=== PATIENT | female | born 1990 | race Caucasian/White ===

== ENCOUNTER 2024-04-19 12:32 | Outpatient (AMB) | payer OTHER, SELFPAY ==
--- OUTSIDE RECORDS SUMMARY | 2024-04-19 12:35 | XMS_ITS | Continuity of Care Document ---
Author Organization [facility] Address [address] [place] [address]- Care Team Providers Care Oil Well Engineer Name Role Phone Saida Ruiz Primary Care Physician Encounter [place] Date(s): 02/27/24 - 03/28/24 [facility] [address] [place] [address] Encounter Type: Triage Allergies, Adverse Reactions, Alerts Substance Criticality Severity Reaction Reaction Severity Status bacitracin Active Neosporin Active Glutens Active Immunizations Given and Recorded Vaccine Date Status Refusal Reason RSV vaccine, preF A-preF B, recombinant 02/08/24 G iven SARS-CoV-2(COVID-19)mRNA-LNP vac([id number]) 01/06/24 Recorded SARS-CoV-2(COVID-19)mRNA-LNP vac([id number]) 02/18/23 Recorded tetanus/diphtheria/pertussis, acel(Tdap) 1 12/30/23 Given influenza virus vaccine, inactivated 02/18/23 Eduardo rded 1Result Comment: [facility]: [id number] Medications aspirin 81 mg oral capsule 1 capsule = 81 mg, By Mouth, 0 Refills, Maintenance, 01/03/24 10:13:00 AM EDT, Partial fill upon patient request if the prescription is for a schedule II opioid drug. Start Date: 01/03/24 Status: Ordered Repeat number: 1 famotidine 20 mg oral tablet 20 mg, 1, tablet, By Mouth, 2 times a day, # 60 tablet, Refills 1, Tot. Refills 1, Maintenance, 02/21/24 12:19:00 PM EDT, Route to Pharmacy Electronically, [facility]/pharmacy #[id number], Partial fill upon patient request if the prescription is for a schedule II opioid drug., 176, cm, 02/21/24 11:45:00 EDT, Height Start Date: 02/21/24 Stop Date: 04/21/24 Status: Ordered Quantity: 60.0 Unit: tablet Repeat number: 2 Humira Pen 40 mg/0.4 mL subcutaneous kit 0 Refills, Maintenance, 06/20/23 8:14:00 AM EST, Partial fill upon patient request if the prescription is for a schedule II opioid drug. Start Date: 06/20/23 Status: Ordered Repeat number: 1 ibuprofen 800 mg oral tablet 800 mg, 1, tablet, By Mouth, Every 8 hours, # 30 tablet, Refills 0, Tot. Refills 0, Maintenance, 03/14/24 6:43:00 AM EST, Route to Pharmacy Electronically, [facility]/pharmacy #[id number], Partial fill upon patient request if the prescription is for a schedule II opioid drug., 174, cm, 03/14/24 0:39:00 EST, Height, 99.72, kg, 03/12/24 8:28:00 EST, Dry Weight Start Date: 03/14/24 Status: Ordered Quantity: 30.0 Unit: tablet Repeat number: 1 Misc Rx Magnesium, Refills 0, Maintenance, 01/03/24 10:12:00 AM EDT, Supply Start Date: 01/03/24 Status: Ordered Repeat number: 1 NIFEdipine (Eqv-Adalat CC) 30 mg oral tablet, extended release 1 tablet = 30 mg, By Mouth, Daily, # 30 tablet, 0 Refills, Maintenance, 03/20/24 1:45:00 PM EST, ERTablet, [facility]/pharmacy #[id number], Partial fill upon patient request if the prescription is for a scheduleII opioid drug., 174, cm, 03/15/24 9:54:00 EST, Height, 99.72, kg, 03/12/24 8:28:00 EST, Dry Weight Start Date: 03/20/24 Status: Ordered Quantity: 30.0 Unit: tablet Repeat number: 1 oxyCODONE 5 mg oral capsule 1 capsule = 5 mg, By Mouth, Every 6 hours, PRN as needed for pain, # 10 capsule, 0 Refills, Maintenance, 03/14/24 6:43:00 AM EST, Capsule, [facility]/pharmacy [id number], Partial fill upon patient request if the prescription is for a schedule II opioid drug., 174, cm, 03/14/24 0:39:00 EST, Height, 99.72, kg, 03/12/24 8:28:00 EST, Dry Weight Start Date: 03/14/24 Status: Ordered Quantity: 10.0 Unit: capsule Repeat number: 1 Multivitamins with Folic Acid 1 mg oral tablet 1 tablet, By Mouth, Daily, # 30 tablet, 0 Refills, Maintenance, 08/01/23 2:26:00 PM EDT, Tablet, Partial fill upon patient request if the prescription is for a schedule II opioid drug. 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 Celiac disease Confirmed Active Endometriosis Confirmed Active Low-lying placenta Confirmed Active Rh negative, antepartum Confirmed Active Tachycardia Confirmed Active Ulcerative colitis Confirmed Active Varicose veins of legs Confirmed Active Social History Social History Type Response Smoking Status Never (less than 100 in lifetime) entered on: 08/01/23 Sex Sex Representation Female (finding) Patient Care team information Care Team Personnel Name: Saida Ruiz Position: [facility] PCO Associate Professional Member Role: PCP Address: [address] [place] [address] Telecom: Care Team Related Persons Name: ALLY RANGEL Name: MIRNA RANGEL Insurance Providers Guarantor name: STEFAN RANGEL Health Plan Information #: 1 Payer: [employer] [facility] PPO Member Number: NA Policy Number: NA Group Number: NA
--- OUTSIDE RECORDS SUMMARY | 2024-04-19 12:35 | XMS_ITS | Continuity of Care Document ---
Author Organization [facility] Address [address] [place] [address]- Care Team Providers Care Traffic Engineering Director Name Role Phone Saida Ruiz Primary Care Physician Encounter [facility] Date(s): 03/19/24 - 04/18/24 [facility] [address] [place] [address]- Encounter Type: Triage Allergies, Adverse Reactions, Alerts Substance Criticality Severity Reaction Reaction Severity Status bacitracin Active Neosporin Active Glutens Active Immunizations Given and Recorded Vaccine Date Status Refusal Reason RSV vaccine, preF A-preF B, recombinant 02/08/24 G iven SARS-CoV-2(COVID-19)mRNA-LNP vac([id number]) 01/06/24 Recorded SARS-CoV-2(COVID-19)mRNA-LNP vac([id number]) 02/18/23 Recorded tetanus/diphtheria/pertussis, acel(Tdap) 1 12/30/23 Given influenza virus vaccine, inactivated 02/18/23 Eduardo rded 1Result Comment: [facility]: [id number] Medications aspirin 81 mg oral capsule 1 [...] PM EDT, Route to Pharmacy Electronically, [facility]/pharmacy #[id number], Partial fill upon patient request if the [...] AM EST, Route to Pharmacy Electronically, [facility]/pharmacy #[id number], Partial fill upon patient request if [...] Maintenance, 03/20/24 1:45:00 PM EST, ERTablet, [facility]/pharmacy #[id number], Partial fill upon patient request if [...] Refills, Maintenance, 03/14/24 6:43:00 AM EST, Capsule, [facility]/pharmacy #[id number], Partial fill upon patient request if [...] Care Team Personnel Name: Saida Ruiz Position: [facility] PCO Associate Professional Member Role: PCP Address: [address] [place] [address] Telecom: Care Team Related Persons Name: ALLY RANGEL Name: MIRNA RANGEL Insurance Providers Guarantor name: STEFAN RANGEL Health Plan Information #: 1 Payer: [employer] [facility] PPO Member Number: NA Policy Number: NA Group Number: NA
--- OUTSIDE RECORDS SUMMARY | 2024-04-19 12:35 | XMS_ITS | Continuity of Care Document ---
Author Organization [facility] Address [address] [place] [address]- Care Team Providers Care Glove Operator Name Role Phone Saida Ruiz Primary Care Physician Encounter [facility] Date(s): 03/01/24 - 03/31/[address] [address] Attending Physician: AdmJaime jacob Admitting Physician: AdmtrJaime Referring Physician: Admtr, Ar8 Encounter Type: Triage Allergies, Adverse Reactions, Alerts Substance Criticality Severity Reaction Reaction Severity Status bacitracin Active Neosporin Active Glutens Active Immunizations Given and Recorded Vaccine Date Status Refusal Reason RSV vaccine, preF A-preF B, recombinant 02/08/24 G iven SARS-CoV-2(COVID-19)mRNA-LNP vac([id number]) 01/06/24 Recorded SARS-CoV-2(COVID-19)mRNA-LNP vac([id number]) 02/18/23 Recorded tetanus/diphtheria/pertussis, acel(Tdap) 1 12/30/23 Given influenza virus vaccine, inactivated 02/18/23 Eduardo rded 1Result Comment: [facility]: [id number] Medications aspirin 81 mg oral capsule 1 [...] 12:19:00 PM EDT, Route to Pharmacy Electronically, [facility]/pharmacy #[id number], Partial fill upon patient request if [...] 6:43:00 AM EST, Route to Pharmacy Electronically, [facility]/pharmacy #[id number], Partial fill upon patient request if [...] Refills, Maintenance, 03/20/24 1:45:00 PM EST, ERTablet, [facility]/pharmacy #[id number], Partial fill upon patient request if [...] Care Team Personnel Name: Saida Ruiz Position: [facility] PCO Associate Professional Member Role: PCP Address: [address] [place] [address] Telecom: Care Team Related Persons Name: ALLY RANGEL Name: MIRNA RANGEL Insurance Providers Guarantor name: STEFAN RANGEL Health Plan Information #: 1 Payer: [facility] PPO Member Number: NA Policy Number: NA Group Number: NA
--- OUTSIDE RECORDS SUMMARY | 2024-04-19 12:35 | XMS_ITS | Continuity of Care Document ---
Author Organization [facility] [employer] [facility] Address [address] [place] [address], [address] [place] [address]- Care Team Providers Care State Farm Agent Name Role Phone Shyam AZEVEDO, Saida Waters Primary Care Physician [phone] [id number] Date[facility] 04/09/[facility] - 04/16/[facility]ie [employer] [address], [address] [place], [place] [address] Attending Physician: Carisa Segura MD Referring Physician: Joseph GARCIA [OB], Leatha Cummings Encounter Type: Office Visit Allergies, Adverse Reactions, Alerts Substance Criticality Severity Reaction Reaction Severity Status bacitracin Active Neosporin Active Glutens Active Immunizations Given and Recorded Vaccine Date Status Refusal Reason RSV vaccine, preF A-preF B, recombinant 02/08/24 G iven SARS-CoV-2(COVID-19)mRNA-LNP vac([id number]) 01/06/24 Recorded SARS-CoV-2(COVID-19)mRNA-LNP vac([id number]) 02/18/23 Recorded tetanus/diphtheria/pertussis, acel(Tdap) 1 12/30/23 Given influenza virus vaccine, inactivated 02/18/23 Eduardo rded 1Result Comment: [facility]: [id number] Medications aspirin 81 mg oral capsule 1 [...] 12:19:00 PM EDT, Route to Pharmacy Electronically, [facility]/pharmacy #[id number], Partial fill upon patient request [...] 6:43:00 AM EST, Route to Pharmacy Electronically, [facility]/pharmacy #[id number], Partial fill upon patient request [...] Refills, Maintenance, 03/20/24 1:45:00 PM EST, ERTablet, [facility]/pharmacy #[id number], Partial fill upon patient request [...] Care Team Personnel Name: Saida Ruiz Position: [facility] PCO Associate Professional Member Role: PCP Address: [address] [place] [address] Telecom: Care Team Related Persons Name: ALLY RANGEL Name: MIRNA RANGEL Insurance Providers Guarantor name: STEFAN RANGEL Health Plan Information #: 1 Payer: [employer] [facility] PPO Member Number: [id number] Policy Number: NA Group Number: [id number] Health Plan Information #: 2 Payer: [facility] PPO Member Number: [id number] Policy Number: NA Group Number: NA
--- OUTSIDE RECORDS SUMMARY | 2024-04-19 12:35 | XMS_ITS | Continuity of Care Document ---
Author Organization [facility] [employer] Address [address] [place] [address], [address] [address]- Care Team Providers Care Director Video Name Role Phone Shyam AZEVEDO, Saida Waters Primary Care Physician [phone] [facility] Date(s): 02/22/24 - 03/23/24 [facility] Perez[facility] [employer]ologic[employer] [address], [address] [place], [place] [address] Encounter Type: Triage Allergies, Adverse Reactions, Alerts Substance Criticality Severity Reaction Reaction Severity Status bacitracin Active Neosporin Active Glutens Active Immunizations Given and Recorded Vaccine Date Status Refusal Reason RSV vaccine, preF A-preF B, recombinant 02/08/24 G iven SARS-CoV-2(COVID-19)mRNA-LNP vac([id number]) 01/06/24 Recorded SARS-CoV-2(COVID-19)mRNA-LNP vac([id number]) 02/18/23 Recorded tetanus/diphtheria/pertussis, acel(Tdap) 1 12/30/23 Given influenza virus vaccine, inactivated 02/18/23 Eduardo rded 1Result Comment: [facility]: [id number] Medications aspirin 81 mg oral capsule 1 [...] 12:19:00 PM EDT, Route to Pharmacy Electronically, [facility]/pharmacy #[id number], Partial fill upon patient request if [...] 6:43:00 AM EST, Route to Pharmacy Electronically, [facility]/pharmacy #[id number], Partial fill upon patient request if [...] Refills, Maintenance, 03/20/24 1:45:00 PM EST, ERTablet, [facility]/pharmacy #[id number], Partial fill upon patient request if [...] Care Team Personnel Name: Saida Ruiz Position: [facility] PCO Associate Professional Member Role: PCP Address: [address] [place] [address] Telecom: Care Team Related Persons Name: ALLY RANGEL Name: MIRNA RANGEL Insurance Providers Guarantor name: STEFAN RANGEL Health Plan Information #: 1 Payer: [employer] [facility] PPO Member Number: NA Policy Number: NA Group Number: NA
--- OUTSIDE RECORDS SUMMARY | 2024-04-19 12:35 | XMS_ITS | Continuity of Care Document ---
Author Organization [facility] [employer] [facility] Address [address] [place] [address], [address] [place] [address]- Care Team Providers Care Senior Clinical Consultant Name Role Phone Saida Ruiz Primary Care Physician [phone] [id number] Date(s): 03/26/24 - 04/02/24 [facility]natalie PerezJ[employer] [address], [address] [place], [place] [address] Attending Physician: Carisa Segura MD Referring Physician: Saida Ruiz Encounter Type: Office Visit Allergies, Adverse Reactions, Alerts Substance Criticality Severity Reaction Reaction Severity Status bacitracin Active Neosporin Active Glutens Active Immunizations Given and Recorded Vaccine Date Status Refusal Reason RSV vaccine, preF A-preF B, recombinant 02/08/24 G iven SARS-CoV-2(COVID-19)mRNA-LNP vac([id number]) 01/06/24 Recorded SARS-CoV-2(COVID-19)mRNA-LNP vac(bed572) 02/18/23 Recorded tetanus/diphtheria/pertussis, acel(Tdap) 1 12/30/23 Given influenza virus vaccine, inactivated 02/18/23 Eduardo rded 1Result Comment: [facility]: [id number] Medications aspirin 81 mg oral capsule 1 [...] 12:19:00 PM EDT, Route to Pharmacy Electronically, [facility]/pharmacy #[id number], Partial fill upon [...] 6:43:00 AM EST, Route to Pharmacy Electronically, [facility]/pharmacy #[id number], Partial fill upon [...] Refills, Maintenance, 03/20/24 1:45:00 PM EST, ERTablet, [facility]/pharmacy #[id number], Partial fill upon [...] Care Team Personnel Name: Saida Ruiz Position: [facility] PCO Associate Professional Member Role: PCP Address: [address] [place] [address] Telecom: Care Team Related Persons Name: ALLY RANGEL Name: MIRNA RANGEL Insurance Providers Guarantor name: STEFAN RANGEL Health Plan Information #: 1 Payer: [employer]EL[employer] [facility] PPO Member Number: [id number] Policy Number: NA Group Number: [id number] Health Plan Information #: 2 Payer: [facility] PPO Member Number: [id number] Policy Number: NA Group Number: NA
--- OUTSIDE RECORDS SUMMARY | 2024-04-19 12:35 | XMS_ITS | Continuity of Care Document ---
Author Organization [facility] Address [address] [place] [address]- Care Team Providers Care Tank Officer Name Role Phone Saida Ruiz Primary Care Physician Encounter [facility] [place] Date(s): 03/06/24 - 04/05/24 [facility] [address] [place] [address]- Encounter Type: Triage Allergies, Adverse Reactions, Alerts Substance Criticality Severity Reaction Reaction Severity Status bacitracin Active Neosporin Active Glutens Active Immunizations Given and Recorded Vaccine Date Status Refusal Reason RSV vaccine, preF A-preF B, recombinant 02/08/24 G iven SARS-CoV-2(COVID-19)mRNA-LNP vac([id number]) 01/06/24 Recorded SARS-CoV-2(COVID-19)mRNA-LNP vac([id number]) 02/18/23 Recorded tetanus/diphtheria/pertussis, acel(Tdap) 1 12/30/23 Given influenza virus vaccine, inactivated 02/18/23 Eduardo rded 1Result Comment: [facility]: [id number] Medications aspirin 81 mg oral capsule 1 [...] 12:19:00 PM EDT, Route to Pharmacy Electronically, [facility]/pharmacy #[id number], Partial fill upon patient request if the [...] 6:43:00 AM EST, Route to Pharmacy Electronically, [facility]/pharmacy #[id number], Partial fill upon patient request [...] Refills, Maintenance, 03/20/24 1:45:00 PM EST, ERTablet, [facility]/pharmacy #[id number], Partial fill upon patient request [...] Refills, Maintenance, 03/14/24 6:43:00 AM EST, Capsule, [facility]/pharmacy #[id number], Partial fill upon patient request [...] Care Team Personnel Name: Saida Ruiz Position: [facility] PCO Associate Professional Member Role: PCP Address: [address] [place] [address] Telecom: Care Team Related Persons Name: ALLY RANGEL Name: MIRNA RANGEL Insurance Providers Guarantor name: STEFAN RANGEL Health Plan Information #: 1 Payer: [employer] [facility] PPO Member Number: NA Policy Number: NA Group Number: NA
--- OUTSIDE RECORDS SUMMARY | 2024-04-19 12:35 | XMS_ITS | Continuity of Care Document ---
Author Organization [facility] [employer] [facility] Address [address] [place] [address], [address] [address]- Care Team Providers Care Inker And Opaquer Name Role Phone Shyam AZEVEDO, Saida Waters Primary Care Physician [facility] [facility] Date(s[place] 03/02/24 - 04/01/24 [facility] PerezSpaceLists [address], [address] [place], [place] [address] Encounter Type: Triage Allergies, Adverse Reactions, Alerts Substance Criticality Severity Reaction Reaction Severity Status bacitracin Active Neosporin Active Glutens Active Immunizations Given and Recorded Vaccine Date Status Refusal Reason RSV vaccine, preF A-preF B, recombinant 02/08/24 G iven SARS-CoV-2(COVID-19)mRNA-LNP vac([id number]) 01/06/24 Recorded SARS-CoV-2(COVID-19)mRNA-LNP vac([id number]) 02/18/23 Recorded tetanus/diphtheria/pertussis, acel(Tdap) 1 12/30/23 Given influenza virus vaccine, inactivated 02/18/23 Eduardo rded 1Result Comment: [facility]: [phone] Medications aspirin 81 mg oral capsule 1 [...] 12:19:00 PM EDT, Route to Pharmacy Electronically, [facility]/pharmacy #[id number], Partial fill upon patient request [...] 6:43:00 AM EST, Route to Pharmacy Electronically, [facility]/pharmacy #[id number], Partial fill upon patient request [...] Refills, Maintenance, 03/20/24 1:45:00 PM EST, ERTablet, [facility]/pharmacy #[id number], Partial fill upon patient request [...] Care Team Personnel Name: Saida Ruiz Position: [facility] PCO Associate Professional Member Role: PCP Address: [address] [place] [address] Telecom: Care Team Related Persons Name: ALLY RANGEL Name: MIRNA RANGEL Insurance Providers Guarantor name: STEFAN RANGEL Health Plan Information #: 1 Payer: [employer] [facility] PPO Member Number: NA Policy Number: NA Group Number: NA
--- OUTSIDE RECORDS SUMMARY | 2024-04-19 12:35 | XMS_ITS | Continuity of Care Document ---
Author Organization [facility] [employer] [employer] [facility] Address [address] [place] [address], [address] [address]- Care Team Providers Care Senior Piping Designer Name Role Phone Shyam AZEVEDO, Saida Waters Primary Care Physician [id number] Date[facility]s): 12/30/23 - 04/12/24 [facility] Navinnatalie Pereztok tok [employer] [address], [address] [place], [place] [address] Attending Physician: Marcel Kiser MD Referring Physician: Leana Neal MD Encounter Type: Pre Office Visit Allergies, Adverse Reactions, Alerts Substance Criticality Severity Reaction Reaction Severity Status bacitracin Active Neosporin Active Glutens Active Immunizations Given and Recorded Vaccine Date Status Refusal Reason RSV vaccine, preF A-preF B, recombinant 02/08/24 G iven SARS-CoV-2(COVID-19)mRNA-LNP vac([id number]) 01/06/24 Recorded SARS-CoV-2(COVID-19)mRNA-LNP vac([id number]) 02/18/23 Recorded tetanus/diphtheria/pertussis, acel(Tdap) 1 12/30/23 Given influenza virus vaccine, inactivated 02/18/23 Eduardo rded 1Result Comment: [facility]: [id number] Medications aspirin 81 mg oral capsule 1 [...] 12:19:00 PM EDT, Route to Pharmacy Electronically, [facility]/pharmacy #[id number], Partial fill upon patient request if [...] 6:43:00 AM EST, Route to Pharmacy Electronically, [facility]/pharmacy #[id number], Partial fill upon patient request if [...] Refills, Maintenance, 03/20/24 1:45:00 PM EST, ERTablet, [facility]/pharmacy #[id number], Partial fill upon patient request if [...] Care Team Personnel Name: Saida Ruiz Position: [facility] PCO Associate Professional Member Role: PCP Address: [address] [place] [address] Telecom: Care Team Related Persons Name: ALLY RANGEL Name: MIRNA RANGEL Insurance Providers Guarantor name: STEFAN RANGEL Health Plan Information #: 1 Payer: [employer] [facility] PPO Member Number: [id number] Policy Number: NA Group Number: [id number] Health Plan Information #: [address] [facility] PPO Member Number: [id number] Policy Number: NA Group Number: NA
--- OUTSIDE RECORDS SUMMARY | 2024-04-19 12:36 | XMS_ITS | Continuity of Care Document ---
Author Organization [facility] Valentin nFlyrs [facility] Address [address] [place] [address], [address] [place] [address]- Care Team Providers Care Watch Hairspring Assembler Name Role Phone Shyam AZEVEDO, Saida Waters Primary Care Physician [id number] Date[facility]s): [facility]/08[facility]24 - 04/15/24 [facility] Navinnatalie PerezFlyrs [address], [address] [place], [place] [address] Attending Physician: Joseph GARCIA [OB], Leatha Cummings Encounter Type: Pre Office Visit Allergies, Adverse Reactions, Alerts Substance Criticality Severity Reaction Reaction Severity Status bacitracin Active Neosporin Active Glutens Active Immunizations Given and Recorded Vaccine Date Status Refusal Reason RSV vaccine, preF A-preF B, recombinant 02/08/24 G iven SARS-CoV-2(COVID-19)mRNA-LNP vac([id number]) 01/06/24 Recorded SARS-CoV-2(COVID-19)mRNA-LNP vac([id number]) 02/18/23 Recorded tetanus/diphtheria/pertussis, acel(Tdap) 1 12/30/23 Given influenza virus vaccine, inactivated 02/18/23 Eduardo rded 1Result Comment: [facility]: [id number] Medications aspirin 81 mg oral capsule 1 [...] PM EDT, Route to Pharmacy Electronically, [facility]/pharmacy #[id number], Partial fill upon patient request [...] AM EST, Route to Pharmacy Electronically, [facility]/pharmacy #[id number], Partial fill upon patient request [...] Maintenance, 03/20/24 1:45:00 PM EST, ERTablet, [facility]/pharmacy #[id number], Partial fill upon patient request [...] Care Team Personnel Name: Saida Ruiz Position: [facility] PCO Associate Professional Member Role: PCP Address: [address] [place] [address] Telecom: Care Team Related Persons Name: ALLY RANGEL Name: MIRNA RANGEL Insurance Providers Guarantor name: STEFAN RANGEL Health Plan Information #: 1 Payer: [facility] PPO Member Number: [id number] Policy Number: NA Group Number: [id number] Health Plan Information #: 2 Payer: [facility] PPO Member Number: [id number] Policy Number: NA Group Number: [id number]
--- OUTSIDE RECORDS SUMMARY | 2024-04-19 12:36 | XMS_ITS | Continuity of Care Document ---
Author Organization [facility] Valentin n[employer] [facility] Address [address] [place] [address], [address] [address]- Care Team Providers Care Gas Torch Brazier Name Role Phone Shyam AZEVEDO, Saida Waters Primary Care Physician [phone] [id number]/19[facility] - 03/26/24 [facility] Pittstonnatalie PerezRadio Revolution Network, LL[employer] [facility] [address] [place] [address], [address] [place], [place] [address] Attending Physician: Carisa Segura MD Referring Physician: Celia Apple MD Encounter Type: Office Visit Allergies, Adverse Reactions, Alerts Substance Criticality Severity Reaction Reaction Severity Status bacitracin Active Neosporin Active Glutens Active Immunizations Given and Recorded Vaccine Date Status Refusal Reason RSV vaccine, preF A-preF B, recombinant 02/08/24 G iven SARS-CoV-2(COVID-19)mRNA-LNP vac([id number]) 01/06/24 Recorded SARS-CoV-2(COVID-19)mRNA-LNP vac([id number]) 02/18/23 Recorded tetanus/diphtheria/pertussis, acel(Tdap) 1 12/30/23 Given influenza virus vaccine, inactivated 02/18/23 Eduardo rded 1Result Comment: [facility]: [id number] Medications aspirin 81 mg oral capsule 1 [...] 12:19:00 PM EDT, Route to Pharmacy Electronically, [facility]/pharmacy #[id number], Partial fill upon patient request [...] 6:43:00 AM EST, Route to Pharmacy Electronically, [facility]/pharmacy #[id number], Partial fill upon patient request [...] Refills, Maintenance, 03/20/24 1:45:00 PM EST, ERTablet, [facility]/pharmacy #[id number], Partial fill upon patient request [...] Care Team Personnel Name: Saida Ruiz Position: [facility] PCO Associate Professional Member Role: PCP Address: [address] [place] [address] Telecom: Care Team Related Persons Name: ALLY RANGEL Name: MIRNA RANGEL Insurance Providers Guarantor name: STEFAN RANGEL Health Plan Information #: 1 Payer: [facility] PPO Member Number: [id number] Policy Number: NA Group Number: [id number] Health Plan Information #: 2 Payer: [facility] PPO Member Number: [id number] Policy Number: NA Group Number: NA
--- OUTSIDE RECORDS SUMMARY | 2024-04-19 12:36 | XMS_ITS | Continuity of Care Document ---
Author Organization [facility] Address [address] [place] [address]- Care Team Providers Care Resident Buyer Name Role Phone Saida Ruiz Primary Care Physician En[facility] Date(s): 03/02/24 - 04/01/24 [facility] [address] [place] [id number] Encounter Type: Triage Allergies, Adverse Reactions, Alerts Substance Criticality Severity Reaction Reaction Severity Status bacitracin Active Neosporin Active Glutens Active Immunizations Given and Recorded Vaccine Date Status Refusal Reason RSV vaccine, preF A-preF B, recombinant 02/08/24 G iven SARS-CoV-2(COVID-19)mRNA-LNP vac([id number]) 01/06/24 Recorded SARS-CoV-2(COVID-19)mRNA-LNP vac([id number]) 02/18/23 Recorded tetanus/diphtheria/pertussis, acel(Tdap) 1 12/30/23 Given influenza virus vaccine, inactivated 02/18/23 Eduardo rded 1Result Comment: [facility]: [id number] Medications aspirin 81 mg oral capsule 1 [...] 12:19:00 PM EDT, Route to Pharmacy Electronically, [facility]/pharmacy #[id number], Partial fill upon patient [...] 6:43:00 AM EST, Route to Pharmacy Electronically, [facility]/pharmacy #[id number], Partial fill upon patient [...] Refills, Maintenance, 03/20/24 1:45:00 PM EST, ERTablet, [facility]/pharmacy #[id number], Partial fill upon patient [...] Care Team Personnel Name: Saida Ruiz Position: [facility] PCO Associate Professional Member Role: PCP Address: [address] [place] [address] Telecom: Care Team Related Persons Name: ALLY RANGEL Name: MIRNA RANGEL Insurance Providers Guarantor name: STEFAN RANGEL Health Plan Information #: 1 Payer: [employer] PPO Member Number: NA Policy Number: NA Group Number: NA
--- OUTSIDE RECORDS SUMMARY | 2024-04-19 12:36 | XMS_ITS | Continuity of Care Document ---
Author Organization [facility] Address [address] [place] [address]- Care Team Providers Care Twisting Operator Name Role Phone Saida Ruiz Primary Care Physician Encounter [facility] [id number] Date(s): 02/28/24 - 03/29/24 [facility] [address] [place] [address]- Attending Physician: Jaime Lyon Admitting Physician: AdmtrJaime Referring Physician: Admtr Ar8 Encounter Type: Triage Allergies, Adverse Reactions, Alerts Substance Criticality Severity Reaction Reaction Severity Status bacitracin Active Neosporin Active Glutens Active Immunizations Given and Recorded Vaccine Date Status Refusal Reason RSV vaccine, preF A-preF B, recombinant 02/08/24 G iven SARS-CoV-2(COVID-19)mRNA-LNP vac([id number]) 01/06/24 Recorded SARS-CoV-2(COVID-19)mRNA-LNP vac([id number]) 02/18/23 Recorded tetanus/diphtheria/pertussis, acel(Tdap) 1 12/30/23 Given influenza virus vaccine, inactivated 02/18/23 Eduardo rded 1Result Comment: [facility]: [id number] Medications aspirin 81 mg oral capsule 1 [...] 12:19:00 PM EDT, Route to Pharmacy Electronically, [facility]/pharmacy #[id number], Partial fill upon patient request if [...] 6:43:00 AM EST, Route to Pharmacy Electronically, [facility]/pharmacy #[id number], Partial fill upon patient request if [...] Refills, Maintenance, 03/20/24 1:45:00 PM EST, ERTablet, [facility]/pharmacy #[id number], Partial fill upon patient request if [...] Care Team Personnel Name: Saida Ruiz Position: [facility] PCO Associate Professional Member Role: PCP Address: [address] [place] [address] Telecom: Care Team Related Persons Name: ALLY RANGEL Name: MIRNA RANGEL Insurance Providers Guarantor name: STEFAN RANGEL Health Plan Information #: 1 Payer: [facility] PPO Member Number: NA Policy Number: NA Group Number: NA
--- OUTSIDE RECORDS SUMMARY | 2024-04-19 12:36 | XMS_ITS | Continuity of Care Document ---
Author Organization [facility] Address [address] [place] [address]- Care Team Providers Care Assembly And Packing Supervisor Name Role Phone Saida Ruiz Primary Care Physician [phone] [place] [facility] Date(s): 02/22/24 - 03/23/24 [facility] [address] [place] [address] Encounter Type: Triage Allergies, Adverse Reactions, Alerts Substance Criticality Severity Reaction Reaction Severity Status bacitracin Active Neosporin Active Glutens Active Immunizations Given and Recorded Vaccine Date Status Refusal Reason RSV vaccine, preF A-preF B, recombinant 02/08/24 G iven SARS-CoV-2(COVID-19)mRNA-LNP vac([id number]) 01/06/24 Recorded SARS-CoV-2(COVID-19)mRNA-LNP vac([id number]) 02/18/23 Recorded tetanus/diphtheria/pertussis, acel(Tdap) 1 12/30/23 Given influenza virus vaccine, inactivated 02/18/23 Eduardo rded 1Result Comment: [facility]: [id number] Medications acetaminophen 650 mg oral tablet, extended release 1 tablet = 650 mg, By Mouth, Every 8 hours, for 10 days, # 30 tablet, 0 Refills, Acute 03/24/24 6:43:00 AM EST, 03/14/24 6:43:00 AM EST, ER Tablet, [id number], Partial fill upon patient request if the prescription is for a schedule II opioid drug., 174, cm, 03/14/24 0:39:00 EST, Height, 99.72, kg, 03/12/24 8:28:00 EST, Dry Weight Start Date: 03/14/24 Stop Date: 03/24/24 Status: Ordered Quantity: 30.0 Unit: tablet Repeat number: 1 aspirin 81 mg oral capsule 1 capsule [...] 12:19:00 PM EDT, Route to Pharmacy Electronically, [facility]/pharmacy #[id number], Partial fill upon patient request [...] 6:43:00 AM EST, Route to Pharmacy Electronically, [facility]/pharmacy #[id number], Partial fill upon patient request [...] Refills, Maintenance, 03/20/24 1:45:00 PM EST, ERTablet, [id number], Partial fill upon patient request [...] Care Team Personnel Name: Saida Ruiz Position: [facility] PCO Associate Professional Member Role: PCP Address: [address] [place] [address] Telecom: Care Team Related Persons Name: ALLY RANGEL Name: MIRNA RANGEL Insurance Providers Guarantor name: STEFAN RANGEL Health Plan Information #: 1 Payer: [facility] PPO Member Number: NA Policy Number: NA Group Number: NA
--- OUTSIDE RECORDS SUMMARY | 2024-04-19 12:36 | XMS_ITS | Continuity of Care Document ---
Author Organization [facility] Address [address] [place] [address] Phone Care Team Providers Care Machine Tool Dresser Name Role Phone Regina GARCIA, Caleb Unavailable Unavailable Allergies, Adverse Reactions, Alerts Substance Reaction Status Criticality gluten Active No Information Medications Medication Instructions Dosage Effective Dates (start - stop) Status Comments Children's Sleep (melatonin) 1 mg chewable tablet - Active ondansetron HCl 4 mg tablet take 1 by Oral route 2 times every day as needed 1 - Active phenazopyridine 200 mg tablet take 1 tablet by oral route 3 times every day after meals 200 MG - Active Aygestin 5 mg tablet take 1 tablet by oral route every day during second half of the menstrual cycle - Active Ortikos 9 mg capsule,extended release take 1 capsule by oral route every day 9 MG - Active cyclobenzaprine 5 mg tablet take 1 tablet by ORAL route every day 5 MG - Active Adjuntas-3 (with docosapentaenoic acid) 1,050 mg-1,200 mg capsule - Active mesalamine 1.2 gram tablet,delayed release take 4 Tablet by ORAL route every day with a meal 4.8 G - Active budesonide DR - ER 3 mg capsule,delayed,extende d release take 2 capsule by oral route every day in the morning for 1 weeks. Then 1 capsules for week then stop right before surgery - Active mesalamine 1.2 gram tablet,delayed release take 4 Tablet by ORAL route every day with a meal 4.8 G - No Longer Active Procedures Procedure Date Office or Outpatient Visit (new, complex ) Advance Directives Directive Yes / No Effective Date File Name No Information Encounters Encounter Description Practice Location Reason(s) For Visit Diagnoses Date Provider Providers Copied on Encounter Office or Outpatient Visit (new, complex) [facility], [facility] [address] [place], [place], [id number] , tel:[phone] [facility] Inflammatory bowel disease (chief complaint) Celiac diseaseIndetermina te colitis 2 Regina Caleb. [facility] [address] [place], [place], [id number] , . tel:[phone] Referring Provider: Dwaine Knapp[address] Torey Killian [facility], [place], [address]. tel:[phone] Family History Family Member Type Diagnosis Age At Onset Father Problem Colon polyps Mother Problem Arthritis Payers Payer name Insurance type Covered constitution party ID Authormauroa felisa(s) BCN [facility] [id number] Social History Type Description Quantity Date Captured Comments Alcohol Use Details No Caffeine Use Details tea weekly per day Tobacco Use Status Current non-smoker Smoking Status Never smoker Non-Smoking Tobacco Use Details : No Details Available : No Details Available Sex Female Vital Signs Date / Time: Height Weight BMI Pulse Rate Blood Pressure Temperature Respiratory Rate Body Surface Area Head Circumference Head Circ. Percentile Wt./Wiley. Percentile BMI percentile Pulse Ox Inhaled Ox 3:59 PM 68.00 in 78.834 kg (173.80 lbs) 26.4 3 kg/m eter (2) 106 /min 121/77 mm[Hg] Chief Complaint And Reason For Visit From encounter dated 12/30/2021 16:00'. Inflammatory bowel disease (chief complaint). 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 Her disease course was such that she has been dealing with this for several years in fact dating back to even 2012 when she was given the diagnosis of celiac disease. However it really was not until 2015 where symptoms started pick upand then again in 2019 she eventually saw a marketing rotation associate when she was in [place]. They felt this was more IBS related and stress. 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 Pathology was reviewed she did have some apathy in theileum but biopsies were negative for that however ascending colon colitis was seen more consistent with ulcerative colitis. Again distribution atypical for ulcerative colitis which we discussed at today's visit. Eventually was put on mesalamine but did not feel like that did much of anything and then developed an E. coli infection in October. Calprotectin severely elevated at that time she has been on antibiotics and eventually then transition to budesonide. That is currently what she is on right now 9 mg. Feels the best she is ever felt having only a few bowel movements per day no bloodin the stool no abdominal cramping.Unfortunately during this time she found she had a large mass inher left fallopian tube consistent with endometriosis now going to be requiring surgery for this. She is also on mesalamine 2.4 g daily. The plan with surgery is to continue on a 9 mg and eventually taper off of it 1 week before surgery. Past medical/surgical history, family history. review of systems, social history reviewed and updated in medical records as needed. 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 Her disease course was such that she has been dealing with this for several years in fact dating back to even 2012 when she was given the diagnosis of celiac disease. However it really was not until 2015 where symptoms started shredder picker and then again in 2019 she eventually saw a marketing rotation associate when she was in [place]. They felt this was more IBS related and stress. 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 Pathology was reviewed she did have some apathy in the ileum but biopsies were negative for that however ascending colon colitis was seen more consistent with ulcerative colitis. Again distribution atypical for ulcerative colitis which we discussed at today's visit. Eventually was put on mesalamine but did not feel like that did much of anything and then developed an E. coli infection in October. Calprotectin severely elevated at that time she has been on antibiotics and eventually then transition to budesonide. That is currently what she is on right now 9 mg. Feels the best she is ever felt having only a few bowel movements per day no blood in the stool no abdominal cramping.Unfortunately during this time she found she had a large mass in her left fallopian tube consistent with endometriosis now going to be requiring surgery for this. She is also on mesalamine 2.4 g daily. The plan with surgery is to continue on a 9 mg and eventually taper off of it 1 week before surgery. Past medical/surgical history, family history. review of systems, social history reviewed and updated in medical records as needed. Functional Status Date Functional Assessmen t No Information Medications Administered Medication Instructions Dosage Effective Dates (start - stop) Status Comments mesalamine 1.2 gram tablet,delayed release take 4 Tablet by ORAL route every day with a meal 4.8 G - No Longer Active Instructions Date Instruction Additional Infor vianey - increase mesalamin e to 4.8g daily- taper off budesonide as we discussed prior to your surgery (prescription given for that)- keep follow up at [facility] as you are doing- avoid NSAIDs-She also has been having some arthralgias therefore recommended she follow-up with rheumatology as well-If he does have been having arthralgias related to inflammatory bowel disease anti-TNF such as Humira may be a good option for her moving forward. While Entyvio would also be a great option for her it would not treat these arthralgias if they could be related to IBD-She is going to be following up at the [facility] and I did state to her she is more than welcome to continue to follow-up with us here but she does work over there and will let us know Related to Indeterminate colitis - Gluten free diet, this means you should avoid all wheat, barley, and rye or cross-breeds of these grains- annual nutritional deficiencies (A, D, E, K, B12 and folate), make sure UTD on vaccinations (flu, pneumovax)- In the future, make sure your primary care physician is aware of other autoimmune diseases associated (diabetes, thyroid disease, sjogren's) Related to Celiac disease Assessments Type Assessment Date assessment Celiac disease assessment Indeterminate colitis impression Again I reviewed her pathology and colonoscopy and she actually also had an upper endoscopy consistent with ulcerative colitis and celiac disease. impression We discussed the pat hophysiology regarding inflammatory bowel disease and specifically ulcerative colitis and likely is more to indeterminate colitis possibly favor even Crohn's colitis. She responded well to budesonide making this more likely diagnosis of inflammatory bowel disease. However it still indeterminate if she will be able to respond to mesalamine therapy and if she does not make it more likely this is a Crohn's colitis. Patient Care Teams Name Effective Dates (start - stop) Status Members No Information
--- OUTSIDE RECORDS SUMMARY | 2024-04-19 12:36 | XMS_ITS | Continuity of Care Document ---
Author Organization [facility] Valentin nMATINAS BIOP[facility]ARMAs [facility] Address [address] [place] [address], [address] [place] [address]- Care Team Providers Care White Goods Appliance Tech Name Role Phone Shyam AZEVEDO, Saida Waters Primary Care Physician [phone] [id number]s): [facility] - 03/29/[facility] Crandallnatalie PerezMATINAS BIOPHARMAs [facility] [address] [place] [address], [address] [place], [place] [address] Attending Physician: Carisa Segura MD Referring Physician: Joseph GARCIA [OB], Leatha Cummings Encounter Type: Office Visit Allergies, Adverse Reactions, Alerts Substance Criticality Severity Reaction Reaction Severity Status bacitracin Active Neosporin Active Glutens Active Immunizations Given and Recorded Vaccine Date Status Refusal Reason RSV vaccine, preF A-preF B, recombinant 02/08/24 G iven SARS-CoV-2(COVID-19)mRNA-LNP vac([id number]) 01/06/24 Recorded SARS-CoV-2(COVID-19)mRNA-LNP vac([id number]) 02/18/23 Recorded tetanus/diphtheria/pertussis, acel(Tdap) 1 12/30/23 Given influenza virus vaccine, inactivated 02/18/23 Eduardo rded 1Result Comment: [facility]: [id number] Medications aspirin 81 mg oral capsule 1 [...] 12:19:00 PM EDT, Route to Pharmacy Electronically, [facility]/pharmacy #[id number], Partial fill upon patient request [...] 6:43:00 AM EST, Route to Pharmacy Electronically, [facility]/pharmacy #[id number], Partial fill upon patient request [...] Refills, Maintenance, 03/20/24 1:45:00 PM EST, ERTablet, [facility]/pharmacy #[id number], Partial fill upon patient request [...] Care Team Personnel Name: Saida Ruiz Position: [facility] PCO Associate Professional Member Role: PCP Address: [address] [place] [address] Telecom: Care Team Related Persons Name: ALLY RANGEL Name: MRINA RANGEL Insurance Providers Guarantor name: STEFAN RANGEL Health Plan Information #: 1 Payer: [employer] PPO Member Number: [id number] Policy Number: NA Group Number: [id number] Health Plan Information #: 2 Payer: [facility] PPO Member Number: [id number] Policy Number: NA Group Number: NA
--- OUTSIDE RECORDS SUMMARY | 2024-04-19 12:36 | XMS_ITS | Continuity of Care Document ---
[facility] Organization [facility] Address [address] [place] [address], [address] [place] [address]- Care Team Providers Care Yard Labor Supervisor Name Role Phone Shyam AZEVEDO, Saida Waters [id number]): [facility]18[facility] Honomunatalie PerezCoppertinos [address], [address] [place], [place] [address] Attending Physician: Joesph GARCIA [OB], Leatha Cummings Referring Physician: Val GARCIA, Leana Hart Encounter Type: Pre Office Visit Allergies, Adverse Reactions, Alerts Substance Criticality Severity Reaction Reaction Severity Status bacitracin Active Neosporin Active Glutens Active Immunizations Given and Recorded Vaccine Date Status Refusal Reason RSV vaccine, preF A-preF B, recombinant 02/08/24 G iven SARS-CoV-2(COVID-19)mRNA-LNP vac([id number]) 01/06/24 Recorded SARS-CoV-2(COVID-19)mRNA-LNP vac([id number]) 02/18/23 Recorded tetanus/diphtheria/pertussis, acel(Tdap) 1 12/30/23 Given influenza virus vaccine, inactivated 02/18/23 Eduardo rded 1Result Comment: [facility]: [id number] Medications aspirin 81 mg oral capsule 1 [...] 12:19:00 PM EDT, Route to Pharmacy Electronically, [facility]/pharmacy #[id number], Partial fill upon patient request if [...] 6:43:00 AM EST, Route to Pharmacy Electronically, [facility]/pharmacy #[id number], Partial fill upon patient request if [...] Refills, Maintenance, 03/20/24 1:45:00 PM EST, [facility], [facility]/pharmacy #[id number], Partial fill upon patient request if [...] Care Team Personnel Name: Saida Ruiz Position: [facility] PCO Associate Professional Member Role: PCP Address: [address] [place] [address] Telecom: Care Team Related Persons Name: ALLY RANGEL Name: MIRNA RANGEL Insurance Providers Guarantor name: STEFAN RANGEL Health Plan Information #: 1 Payer: [employer] [facility] PPO Member Number: [id number] Policy Number: NA Group Number: [id number] Health Plan Information #: 2 Payer: [facility] PPO Member Number: [id number] Policy Number: NA Group Number: [id number]
[2024-04-19 12:55] VITALS: BP 120/68; PULSE 76; O2SAT 98; BMI 27.1
--- NOTE | 2024-04-19 12:55 | MHC.OFFVIS ---
Vital Signs 04/19/24 12:55 Height 5 ft 8.5 in Weight 180 lb 15.992 oz BMI 27.1 BP 120/68 Blood Pressure Location Lt brachial Position Sitting Pulse 76 Pulse Source Pulse Oximeter Pulse Oximetry (%) 98 Oxygen Delivery Method Room Air Intake Visit Reasons: Intake Note: Patient presents for follow up on ankylosing spondylitis. Allergies bacitracin [From Polysporin(bacitracin base)] Allergy (Mild, Verified 04/19/24 12:59) Rash polymyxin B [From Polysporin(bacitracin base)] Allergy (Mild, Verified 04/19/24 12:59) Rash HPI HPI : Details: She is doing well. She had a when she delivered her daughter. She also experience hypertension. She is meeting with her OB next week. She has not had any flare-up of ankylosing spondylitis or Crohn's disease. She denies any joint pain or swelling at this time. No recent infections. [facility] Medical History (Updated 04/19/24 @ 13:24 by Hang Johnson MD) Celiac disease Endometriosis Ulcerative colitis delivery delivered Ankylosing spondylitis Family History (Updated 04/19/24 @ 13:03 by Melody Nj CMA) Mother Juvenile rheumatoid arthritis Rheumatoid arthritis Social History (Updated 04/19/24 @ 13:03 by Melody Nj CMA) Alcohol intake: never Patient Tobacco Use Status: Never used Tobacco Review of Systems Const All systems reviewed & are unremarkable except as noted in HPI and below Physical Exam Vital Signs: Last Vital Signs Pulse 76 04/19/24 12:55 BP 120/68 04/19/24 12:55 Pulse Ox 98 04/19/24 12:55 Oxygen Delivery Method Room Air 04/19/24 12:55 BMI result Body Mass Index 27.1 Const Other: General: Comfortable CVS: RRR Respiratory: clear to auscultation bilaterally. Good respiratory effort Skin: No lesions seen MSK: No tenderness of joints. No synovitis. Good range of motion of upper extremities and lower extremities. No SI joint tenderness. Negative WARREN. Good range of motion of cervical spine and lumbar flexion. Assessment & Plan Assessment & Plan (1) Ankylosing spondylitis: Comment: Controlled on Humira. Humira is also controlling ulcerative colitis. Code(s): M45.9 - Ankylosing spondylitis of unspecified sites in spine Category: Medical Plan: Continue Humira 40 mg every other week Labs ordered for disease and drug monitoring on high-risk medication. Patient prefers to do labs next week when she visits her Ob at [facility] Return to clinic in 3 months (2) Other correction (current) drug therapy: Code(s): Z79.899 - Other terminal operator (current) drug therapy Category: Medical Plan: See above Orders: Orders Erythrocyte Sedimentation Rate Today M45.9 - Ankylosing spondylitis of unspecified sites in spine, Z79.899 - Other correction (current) drug therapy C Reactive Protein Today M45.9 - Ankylosing spondylitis of unspecified sites in spine, Z79.899 - Other terminal operator (current) drug therapy Aspartate Amino Transferase Today Z79.60 - extermination supervisor (current) use of unspecified immunomodulators and immunosuppressants T Spot TB Today M45.9 - Ankylosing spondylitis of unspecified sites in spine, Z79.899 - Other correction (current) drug therapy Hepatitis B,C Profile Today M45.9 - Ankylosing spondylitis of unspecified sites in spine, Z79.899 - Other correction (current) drug therapy Alanine Aminotransferase Today Z79.60 - extermination supervisor (current) use of unspecified immunomodulators and immunosuppressants Complete Blood Count Auto Diff Today Z79.60 - [facility] (current) use of unspecified immunomodulators and immunosuppressants Creatinine Today Z79.60 - extermination supervisor (current) use of unspecified immunomodulators and immunosuppressants Medications: New adalimumab (Humira(CF)) PA needed for continuity of treatment. 40 mg (0.4 mL) subcut Q2W 2 ea 2RF Coding Level of Care Code Est Pt Level 4 (66685) Complex EM visit Add On G2211 Diagnoses Ankylosing spondylitis M45.9 Other terminal operator (current) drug therapy Z79.899
== END 2024-04-19 13:26 | disposition home or self-care (01) ==
PROVIDERS: Visit Provider Internal Medicine Rheumatology
DX: M45.9 Ankylosing spondylitis of unspecified sites in spine (principal); Z79.899 Other long term (current) drug therapy
CPT/HCPCS: 99214

== ENCOUNTER → 2024-04-19 12:32 | Outpatient (BNVA) | payer OTHER, SELFPAY | PROVIDERS: Visit Provider Internal Medicine Rheumatology ==

== ENCOUNTER 2024-07-19 13:54 | Outpatient (REF) | payer OTHER, SELFPAY ==
[2024-07-19 17:49] LABS: MANUAL DIFF FLAG NO
[2024-07-19 18:02] LABS: Basophils Absolute Auto 0.1 X10*3/uL (0.0-0.2); Basophils Percent Auto 0.9 % (0-2); Eosinophils Absolute Auto 0.3 X10*3/uL (0.0-0.4); Eosinophils Percent Auto 4.6 % (0-4); Hematocrit 37.3 % (37.0-47.0); Hemoglobin 12.4 g/dl (12.0-16.0); Imm Gran Abs Auto 0.01 X10*3/uL (0.00-0.03); Imm Gran Pct Auto 0.2 % (0.0-0.4); Lymphocytes Percent Auto 37.5 % (20-40); Mean Corpuscular HGB Conc 33.2 g/dl (31.0-35.0); Mean Corpuscular Hemoglobin 29.1 pg (27.0-33.0); Mean Corpuscular Volume 87.6 fL (80.0-98.0); Mean Platelet Volume 11.4 fL (9.4-12.3); Monocytes Absolute Auto 0.5 X10*3/uL (0.1-1.2); Monocytes Percent Auto 9.6 % (2-11); Neutrophils Absolute Auto 2.6 x10*3/uL (2.0-8.3); Neutrophils Percent Auto 47.2 % (45-73); Platelet Count 266 X10*3/uL (160-400); Red Blood Count 4.26 X10*6/uL (4.20-5.50); Red Cell Distribution Width 12.1 % (11.0-16.0); White Blood Count 5.4 X10*3/uL (4.8-10.8)
[2024-07-19 18:07] LABS: Alanine Aminotransferase 20 U/L (0-31); Aspartate Amino Transferase 21 U/L (5-31); C Reactive Protein 2.34 mg/dL (< or = 0.50); Estimated Glomerular Filt Rate > 60
[2024-07-19 18:52] LABS: Erythrocyte Sedimentation Rate 33 MM/HR (0-20)
== END 2024-07-19 13:55 | disposition home or self-care (01) ==
LOC: HO.HKASLDS 13:54
PROVIDERS: Visit Provider Internal Medicine Rheumatology
DX: M45.8 Ankylosing spondylitis sacral and sacrococcygeal region (principal); M65.30 Trigger finger, unspecified finger; M77.11 Lateral epicondylitis, right elbow; Z79.60 Long term (current) use of unspecified immunomodulators and immunosuppressants; Z79.899 Other long term (current) drug therapy
CPT/HCPCS: 36415; 82565; 84450; 84460; 85025; 85652; 86140

== ENCOUNTER 2024-07-19 13:54 | Outpatient (AMB) | payer OTHER, SELFPAY ==
--- NOTE | 2024-07-19 14:04 | A.OFFVIS_ITS ---
Vital Signs 07/19/24 14:06 Weight 183 lb 6 oz BP 130/100 H Blood Pressure Location Lt brachial Position Sitting Pulse 91 Pulse Oximetry (%) 100 Oxygen Delivery Method Room Air Intake Visit Reasons: Follow Up 3mo Intake Note: pt presents today for spondialtis follow up Allergies bacitracin [From Polysporin(bacitracin base)] Allergy (Mild, Verified 07/19/24 14:07) Rash polymyxin B [From Polysporin(bacitracin base)] Allergy (Mild, Verified 07/19/24 14:07) Rash HPI HPI Follow Up 3mo: Details: Left 4th or 5th fingers triggering usually at night. It occurs when she is taking care of her child such as feeding. She has had history of right medial epicondylitis improved with PT during . She is experiencing pain in her right elbow and her forearm. She has not been compliant with exercises at home. She is not wearing her elbow support bands consistently. No new joint swelling or dactylitis or back pain. She feels that her back has felt the best that it has ever felt at this time. She is currently being treated for mastitis on antibiotic. She was due for Humira yesterday. [facility] Medical History (Updated 07/19/24 @ 15:19 by Hang Johnson MD) Celiac disease Endometriosis Ulcerative colitis delivery delivered Ankylosing spondylitis Family History (Updated 04/19/24 @ 13:03 by Melody Nj CMA) Mother Juvenile rheumatoid arthritis Rheumatoid arthritis Social History (Updated 04/19/24 @ 13:03 by Melody Nj CMA) Alcohol intake: never Patient Tobacco Use Status: Never used Tobacco Review of Systems Const All systems reviewed & are unremarkable except as noted in HPI and below Physical Exam Vital Signs: Last Vital Signs Pulse 91 07/19/24 14:06 BP 130/100 H 07/19/24 14:06 Pulse Ox 100 07/19/24 14:06 Oxygen Delivery Method Room Air 07/19/24 14:06 Const Other: General: Comfortable CVS: RRR Respiratory: clear to auscultation bilaterally. Good respiratory effort Skin: No lesions seen MSK: No tenderness of joints. No synovitis. Good range of motion of upper extremities and lower extremities. No SI joint tenderness. Negative WARREN. Good range of motion of cervical spine and lumbar flexion. No triggering observed. Right lateral epicondyle tenderness on palpation. No pain with resisted wrist extension. Assessment & Plan Assessment & Plan (1) Ankylosing spondylitis: Comment: Controlled on Humira. Humira is also controlling ulcerative colitis. 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 MRI pelvis 03/2022 revealed mild left sacroiliitis. She has ulcerative colitis diagnosed August 2021. Humira started April 2022 to present. She had history of trigger fingers of her left hand that resolved while on Humira. Recurrence of left hand trigger finger involving 4th or 5th finger 2024. Code(s): M45.9 - Ankylosing spondylitis of unspecified sites in spine Category: Medical Qualifiers: Ankylosing spondylitis location: sacral region Qualified Code(s): M45.8 - Ankylosing spondylitis sacral and sacrococcygeal region Plan: She will resume Humira after she completes antibiotic treatment and mastitis resolves. She will resume Humira 40 mg subcutaneous injection every other week Labs ordered for disease and drug monitoring on high-risk medication [facility] Return to clinic in 3 months (2) Trigger finger of left hand: Comment: Left 4th or 5th finger in the last 2 months. Diagnosis based on history. Unremarkable exam. Discussed conservative management Code(s): M65.30 - Trigger finger, unspecified finger Category: Medical Qualifiers: Trigger finger location: unspecified finger Qualified Code(s): M65.30 - Trigger finger, unspecified finger Plan: I recommend OT with splinting trigger finger at night Return to clinic in 3 months (3) Right lateral epicondylitis: Comment: Right, chronic. Discussed conservative management. Code(s): M77.11 - Lateral epicondylitis, right elbow Category: Medical Plan: Resume PT exercises learned in the past. OT ordered Resume wearing elbow support bands Return to clinic in 3 months (4) Other intermediate (current) drug therapy: Code(s): Z79.899 - Other terminal computer operator (current) drug therapy Category: Medical Plan: See above Orders: Orders Alanine Aminotransferase Today Z79.60 - group home (current) use of unspecified immunomodulators and immunosuppressants Aspartate Amino Transferase Today Z79.60 - group home (current) use of unspecified immunomodulators and immunosuppressants Complete Blood Count Auto Diff Today Z79.60 - group home (current) use of unspecified immunomodulators and immunosuppressants Erythrocyte Sedimentation Rate Today Z79.899 - Other intermediate (current) drug therapy Creatinine Today Z79.60 - group home (current) use of unspecified immunomodulators and immunosuppressants C Reactive Protein Today Z79.899 - Other intermediate (current) drug therapy OT Evaluation and Treatment Today M65.30 - Trigger finger, unspecified finger, M77.11 - Lateral epicondylitis, right elbow Medications: Refilled adalimumab (Humira(CF) Pen) 40 mg (0.4 mL) subcut Q2W 2 ea 2RF Coding Level of Care Code Est Pt Level 4 (89331) Complex EM visit Add On G2211 Diagnoses Ankylosing spondylitis of sacral region M45.8 Ankylosing spondylitis location: sacral region Trigger finger of left hand, unspecified finger M65.30 Trigger finger location: unspecified finger Right lateral epicondylitis M77.11 Other intermediate (current) drug therapy Z79.895
[2024-07-19 14:06] VITALS: BP 130/100; PULSE 91; O2SAT 100
--- OUTSIDE RECORDS SUMMARY | 2024-07-19 17:40 | XMS_ITS | Continuity of Care Document ---
Author Organization [facility] Wilian lt Address [address] [place] [address]- Care Team Providers Care Flotation Operator Name Role Phone Saida Ruiz [id number] [address] [place] [address]- Attending Physician: Saida Ruiz Encounter Type: Office Visit Allergies, Adverse Reactions, Alerts Substance Criticality Severity Reaction Reaction Severity Status bacitracin Active Neosporin Active Glutens Active Immunizations Given and Recorded Vaccine Date Status Refusal Reason RSV vaccine, preF A-preF B, recombinant 02/08/24 G iven SARS-CoV-2(COVID-19)mRNA-LNP vac([id number]) 01/06/24 Recorded SARS-CoV-2(COVID-19)mRNA-LNP vac([id number]) 02/18/23 Recorded tetanus/diphtheria/pertussis, acel(Tdap) 1 12/30/23 Given influenza virus vaccine, inactivated 02/18/23 Eduardo rded 1Result Comment: [facility]: [id number] Medications Humira Pen 40 mg/0.4 mL subcutaneous kit 0 Refills, Maintenance, 06/20/23 8:14:00 AM EST, Partial fill upon patient request if the prescription is for a schedule II opioid drug. Start Date: 06/20/23 Status: Ordered Repeat number: 1 Misc Rx Magnesium, Refills 0, Maintenance, 01/03/24 10:12:00 AM EDT, Supply Start Date: 01/03/24 Status: Ordered Repeat number: 1 Multivitamins with Folic Acid [...] Celiac disease Confirmed Active Endometriosis Confirmed Active Rh negative, antepartum Confirmed Active Tachycardia Confirmed Active Ulcerative colitis Confirmed Active Varicose veins of legs Confirmed Active Vital Signs Most recent to oldest [Reference Range]: 1 Height 174 cm (06/25/24 8:33 AM) Weight 84.4 kg (06/25/24 8:33 AM) Oxygen Saturation [94-100 %] 100 % (06/25/24 8:33 AM) Pulse Rate [55-90 bpm] 99 bpm *H* (06/25/24 8:33 AM) Body Mass Index [18.5-24.99 kg/m2] 27.88 kg/m2 *H* (06/25/24 8:33 AM) Blood Pressure [90-138/55-84 mm Hg] 112/ 76mm Hg (06/25/24 8:33 AM) Temperature [96.8-100.4 DegF] 98.7 DegF (06/25/24 8:33 AM) Blood pressure sites Arm, left (06/25/24 8:33 AM) Temperature Route Oral (06/25/24 8:33 AM) Weight Obtained Via Standing scale (06/25/24 8:33 AM) Social History Social History Type Response Smoking Status Never (less than 100 in lifetime) entered on: 08/01/23 Sex Sex Representation Female (finding) Note * Ronald Rangel: PERFORM Event Display: Patient Education/Instruction Authored Date: [id number] Ambulatory Pedi Visit Summary [facility] [address] [place] [address] Name: STEFAN RANGEL : 1990?? Visit: 06/25/2024 08:26?? Ambulatory Visit Instructions ?? Your Care Team Primary Care Provider Shyam AZEVEDO, Saida Waters? This Visit Provider Margi LESLIE, Deb Garrett Your Diagnosis Well adult exam Vitals Signs Temperature: 98.7 DegF Height: 174 cm Pulse Rate:??99 bpm??High Weight: 84.4 kg Systolic Blood Pressure: 112 mm Hg Body Mass Index:??27.88 kg/m2??High Diastolic Blood Pressure: 76 mm Hg Body surface area: 2.02 Oxygen Saturation: 100 % ?? What to do next Scheduled Follow-Up Appointments 2024 2:30 PM EST ?? [facility] [address] [place] [address]- Status: Pending 2024 3:00 PM EDT ?? With: Soledad GARCIA, Michael Cummings Where: [facility] CRIMINAL INTELLIGENCE SPECIALIST [address] [place] [address]- Status: Pending Tuesday 2:40 PM EDT ?? With: Servant AZEVEDO, Amisha Escobar Where: [facility] CRIMINAL INTELLIGENCE SPECIALIST [address] [place] [address]- Status: Pending Medications The list below reflects the information in our records and provided by you today along with any changes made during this visit. Please continue your medications until treatment is completed or stopped by your provider. If this is different from the information you have or there are other questions,please contact the prescribing provider. What How Much When Instructions Unchanged Adalimumab (Humira Pen 40 mg/ 0.4 mL subcutaneous kit) Unchanged Miscellaneous Rx (Misc Rx) Magnesium Unchanged Multivitamin, ( Multivitamins with Folic Acid 1 mg oral tablet) 1 tab(s) Oral Daily Test Performed Below is a partial list of the tests performed during your Visit. You may have had other tests and procedures not included in this list. Please discuss all test results with your provider. Hemoglobin A1C (Monitoring)?-- Results Pending -- Lipid Panel?-- Results Pending -- TSH Rfx on Abnormal to Free T4?-- Results Pending -- Medications and Immunizations Administered Medications Given During Visit No medications given during this visit.?? Allergies (NKA means No Known Allergies) Glutens Neosporin bacitracin Common Emergency Awareness Tips IS IT A STROKE? Act FAST and Check for these signs: FACE Does the face look uneven? ARM Does one arm drift down? SPEECH Does their speech sound strange? TIME Call at any sign of stroke ?? Heart Attack Signs Chest discomfort: Most heart attacks involve discomfort in the center of the chest and lasts more than a few minutes, or goes away and comes back. It can feel like uncomfortable pressure, squeezing, fullness or pain. Discomfort in upper body: Symptoms can include pain or discomfort in one or both arms, back, neck, jaw or stomach. Shortness of breath: With or without discomfort. Other signs: Breaking out in a cold sweat, nausea, or lightheaded. Remember, MINUTES DO MATTER. If you experience any of these heart attack warning signs, call to get immediate medical attention! ?? Smoking can increase your chances of developing chronic health problems and can cause harmful effects to other family members in your house. If you smoke, you are strongly encouraged to quit. Please call [employer] at [phone] or 9-204-722Solarus ([phone]) or log in to [email or web address] for referrals to smoking cessation programs. ?? The National Suicide Prevention Hotline is available 29/11 if you or someone you know needs to find a reason to keep living. By calling 9-286-456-ADIKTIVO (2397) you'll be connected to a skilled, trained counselor at a crisis center in your area. [facility] IntraOp Medical Portal You can view and manage your care through the patient portal or by using a health care costa of your choosing. [employer] is a website that allows you to securely view your medical information including your hospital discharge summary, office visit summaries, medications and follow-up visits. You can also request appointments, renew medications, and request access to your medical information using a health care costa of your choosing, or just ask a question. You can enroll at [email or web address] or register during your next office visit. [facility], in keeping with [facility] guidance, no longer requires face masks for staff, patientsor visitors in most situations. Similiar to time spent indoors at other locations, there is the chance that you were exposed to repiratory viruses during your time with us (such as flu or COVID-19). If you develop symptoms concerning for a viral respiratory infection, please seek testing (and treatment if indicated) from your medical provider or home test kit. ?? Disclaimer: The information provided is of a general nature and is intended to be used in conjunction with the recommendations and advice of your health care practitioner. Every effort has been made to ensure that the information provided is accurate and complete at the time it is provided to you however, as your needs change, or, as new information becomes available, different or additional instructions may be required. ?? If you have questions, please consult with your primary care provider or pharmacist, as appropriate. This information is not intended to serve as substitution for assessment and evaluation by a qualified health care provider. If you do not have a primary care provider, you may find a [facility] provider by calling [facility] IntraOp Medical [facility] at [phone]. Patient Care team information Care Team Personnel Name: Saida Ruiz Position: [facility] PCO Associate Professional Member Role: PCP Address: [address] [place] [address] Telecom: Care Team Related Persons Name: ALLY RANGEL Name: MIRNA RANGEL Insurance Providers Guarantor name: STEFAN RANGEL Health Plan Information #: 1 Payer: [employer] [facility] PPO Member Number: [id number] Policy Number: NA Group Number: [id number] Health Plan Information #: 2 Payer: [facility] PPO Member Number: [id number] Policy Number: NA Group Number: NA
--- OUTSIDE RECORDS SUMMARY | 2024-07-19 17:40 | XMS_ITS | Continuity of Care Document ---
Author Organization [facility] Address [address] [place] [address]- Care Team Providers Care Joint Special Operations Name Role Phone Saida Ruiz Primary Care Physician [phone] Encounter [facility] Date(s): 06/01/24 - 07/01/24 [facility] G[facility] [address] [place] [address]- Encounter Type: Triage Allergies, Adverse Reactions, Alerts Substance Criticality Severity Reaction Reaction Severity Status bacitracin Active Neosporin Active Glutens Active Immunizations Given and Recorded Vaccine Date Status Refusal Reason RSV vaccine, preF A-preF B, recombinant 02/08/24 G iven SARS-CoV-2(COVID-19)mRNA-LNP vac([id number]) 01/06/24 Recorded SARS-CoV-2(COVID-19)mRNA-LNP vac([id number]) 02/18/23 Recorded tetanus/diphtheria/pertussis, acel(Tdap) 1 12/30/23 Given influenza virus vaccine, inactivated 02/18/23 Eduardo rded 1Result Comment: [facility]: [id number] Medications Humira Pen 40 mg/0.4 mL subcutaneous [...] Care Team Personnel Name: Saida Ruiz Position: [facility] PCO Associate Professional Member Role: PCP Address: [address] [place] [address] Telecom: Care Team Related Persons Name: ALLY RANGEL Name: MIRNA RANGEL Insurance Providers Guarantor name: STEFAN RANGEL Health Plan Information #: 1 Payer: [employer] [facility] PPO Member Number: NA Policy Number: NA Group Number: NA
--- OUTSIDE RECORDS SUMMARY | 2024-07-19 17:40 | XMS_ITS | Continuity of Care Document ---
Author Organization [facility] Address [address] [place] [address]- Care Team Providers Care Administrative Asst Name Role Phone Saida Ruiz Primary Care Physician [phone] Encounter [facility] Date(s): 06/01/24 - 07/01/24 [facility] [address] [place] [address]- Encounter Type: Triage Allergies, Adverse Reactions, Alerts Substance Criticality Severity Reaction Reaction Severity Status bacitracin Active Neosporin Active Glutens Active Immunizations Given and Recorded Vaccine Date Status Refusal Reason RSV vaccine, preF A-preF B, recombinant 02/08/24 G iven SARS-CoV-2(COVID-19)mRNA-LNP vac([id number]) 01/06/24 Recorded SARS-CoV-2(COVID-19)mRNA-LNP vac([id number]) 02/18/23 Recorded tetanus/diphtheria/pertussis, acel(Tdap) 1 12/30/23 Given influenza virus vaccine, inactivated 02/18/23 Eduardo rded 1Result Comment: [facility]: [id number] Medications Humira Pen 40 mg/0.4 mL subcutaneous [...] Care Team Personnel Name: Saida Ruiz Position: [facility] PCO Associate Professional Member Role: PCP Address: [address] [place] [address] Telecom: Care Team Related Persons Name: ALLY RANGEL Name: MIRNA RANGEL Insurance Providers Guarantor name: STEFAN RANGEL Health Plan Information #: 1 Payer: [employer] [facility] PPO Member Number: NA Policy Number: NA Group Number: NA
== END 2024-07-19 14:52 | disposition home or self-care (01) ==
LOC: HO.RHES 13:55
PROVIDERS: Visit Provider Internal Medicine Rheumatology
DX: M45.8 Ankylosing spondylitis sacral and sacrococcygeal region (principal); M65.30 Trigger finger, unspecified finger; M77.11 Lateral epicondylitis, right elbow; Z79.899 Other long term (current) drug therapy
CPT/HCPCS: 99214

== ENCOUNTER 2024-10-23 13:13 | Outpatient (REF) | payer OTHER, SELFPAY ==
[2024-10-23 17:53] LABS: Baso%MD 0.4 %; Eos%MD 1.2 %; Hemoglobin 12.8 g/dl (12.0-16.0); IG%MD 0.3 %; Lymph%MD 32.9 %; Mean Corpuscular HGB Conc 32.8 g/dl (31.0-35.0); Mean Corpuscular Volume 88.4 fL (80.0-98.0); Mean Platelet Volume 11.3 fL (9.4-12.3); Mono%MD 7.5 %; Neut%MD 57.7 %; Platelet Count 266 X10*3/uL (160-400); Red Blood Count 4.41 X10*6/uL (4.20-5.50); Red Cell Distribution Width 12.4 % (11.0-16.0); White Blood Count 6.9 X10*3/uL (4.8-10.8)
[2024-10-23 18:05] LABS: Alanine Aminotransferase 23 U/L (0-31); Aspartate Amino Transferase 22 U/L (5-31); C Reactive Protein < 0.10 mg/dL (< or = 0.50); Estimated Glomerular Filt Rate > 60
[2024-10-23 18:28] LABS: Erythrocyte Sedimentation Rate 12 MM/HR (0-20)
[2024-10-23 18:35] LABS: Basophils Abs Manual 0.1 X10*3/uL (0.0-0.2); Basophils Percent Manual 1 % (0-2); Eosinophils Absolute Manual 0.1 X10*3/uL (0.0-0.4); Eosinophils Percent Manual 1 % (0-4); Lymphocytes Absolute Manual 2.1 X10*3/uL (1.2-4.9); Lymphocytes Percent Manual 30 % (20-40); Monocytes Absolute Manual 0.3 X10*3/uL (0.1-1.2); Monocytes Percent Manual 4 % (2-11); Neutrophils Percent Manual 64 % (45-73)
[2024-10-23 18:36] LABS: Neutrophils Absolute Manual 4.4 X10*3/uL (2.0-8.3); Platelet Estimate NORMAL (NORMAL); Platelet Morphology Comment NORMAL; RBC Morphology NORMAL
== END 2024-10-23 13:14 | disposition home or self-care (01) ==
LOC: HO.HKASLDS 13:13
PROVIDERS: PCP Physician Assistant; Visit Provider Internal Medicine Rheumatology
DX: M45.8 Ankylosing spondylitis sacral and sacrococcygeal region (principal); M79.672 Pain in left foot; Z79.899 Other long term (current) drug therapy
CPT/HCPCS: 36415; 82565; 84450; 84460; 85007; 85027; 85652; 86140

== ENCOUNTER 2024-10-23 13:13 | Outpatient (AMB) | payer OTHER, SELFPAY ==
--- NOTE | 2024-10-23 13:17 | MHC.OFFVIS ---
Vital Signs 10/23/24 13:18 Height 5 ft 8.5 in Weight 186 lb BMI 27.9 BP 120/80 Blood Pressure Location Lt brachial Position Sitting Pulse 100 Pulse Source Pulse Oximeter Pulse Oximetry (%) 98 Oxygen Delivery Method Room Air Intake Visit Reasons: 3 Months Intake Note: Patient presents today for spondylitis follow up. Allergies bacitracin [From Polysporin(bacitracin base)] Allergy (Mild, Verified 10/23/24 13:22) Rash polymyxin B [From Polysporin(bacitracin base)] Allergy (Mild, Verified 10/23/24 13:22) Rash HPI HPI 3 Months: Details: During who returned daily she started a home exercise program. She started weightlifting leading to increased back pain, especially her SI joint. She has reduced her exercise sits going back to work. She is able to do occasional for least a half an hour few times a week. She continues to breastfeed her six-month child. Her six-month child has refused to bottle-feed. She was able to change his scheduled shows she is working half day in office enabling her to come home to provide milk to her daughter, which is her primary source of nutrition. Due to the long period of her baby not having her milk feed while patient is working (up to 6 hour interval sometimes), she is waking up frequently at night for feeds. She recently started introducing solids. No new joint swelling. Ulcerative colitis is under control. She has been home for the last 2 days and has not experienced any elbow pain. She experiences elbow pain when she is at work. She types at work and sees patients. She sprained her ankle yesterday. Right ankle is swollen. She has a compression sleeve on. She is experiencing left arch pain intermittently. She has history of plantar fasciitis in the past. [facility] Medical History Celiac disease Endometriosis Ulcerative colitis delivery delivered Ankylosing spondylitis Family History (Updated 10/23/24 @ 13:22 by Heena Alejandro CMA) Mother Juvenile rheumatoid arthritis Rheumatoid arthritis Social History Alcohol intake: never Patient Tobacco Use Status: Never used Tobacco Physical Exam Vital Signs: Last Vital Signs Pulse 100 10/23/24 13:18 BP 120/80 10/23/24 13:18 Pulse Ox 98 10/23/24 13:18 Oxygen Delivery Method Room Air 10/23/24 13:18 BMI result Body Mass Index 27.9 Const Other: General: Comfortable CVS: RRR Respiratory: clear to auscultation bilaterally. Good respiratory effort Skin: No lesions seen MSK: No tenderness of joints. No synovitis. Normal range of motion of upper extremities and lower extremities. Right SI joint tenderness. Negative WARREN. Normal range of motion of cervical spine and lumbar flexion. No tenderness of arch of feet or localized to plantar aponeurosis. She has normal arches. Right ankle is swollen without warmth. No MTP tenderness Assessment & Plan Assessment & Plan (1) Ankylosing spondylitis: Comment: Controlled on Humira. Humira is also controlling ulcerative colitis. We had an extensive discussion of safety with breast-feeding while on Humira. Overall the research and evidence has shown that there is very low amount of Humira that is present in the serum of the baby. At this time her insurance health [employer] is mandating that Humira be switch to a biosimilar. I was unable to find specific safety data on and use of biosimilars including Hadlima or Amjevita including on the FDA label of each of the biosimilars. Therefore, I am recommending that patient continues biologic Humira for optimal treatment and to maintain remission as there is risk with patient flaring either ankylosing spondylitis or ulcerative colitis or both autoimmune chronic diseases. There is unknown risk to her baby who requires patient's breast milk for her primary source of nutrition, which patient is not willing to risk. This is understandable to prevent harm to her baby. It is in the best interest for patient and her breast-feeding baby for patient to remain on Humira. 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 MRI pelvis 03/2022 revealed mild left sacroiliitis. She has ulcerative colitis diagnosed August 2021. Humira started April 2022 to present. She had history of trigger fingers of her left hand that resolved while on Humira. Recurrence of left hand trigger finger involving 4th or 5th finger 2024. Code(s): M45.9 - Ankylosing spondylitis of unspecified sites in spine Category: Medical Qualifiers: Ankylosing spondylitis location: sacral region Qualified Code(s): M45.8 - Ankylosing spondylitis sacral and sacrococcygeal region Plan: Continue Humira 40 mg subcutaneous injection every other week Labs ordered for disease and drug monitoring on high-risk medication I will appeal insurances dishes in to mandate patient to change Humira to a bio similar Return to clinic in 3 months (2) Other computer terminal operator (current) drug therapy: Code(s): Z79.899 - Other computer terminal operator (current) drug therapy Category: Medical Plan: See above (3) Left foot pain: Comment: Intermittent. Localized to her arch but not reproducible on exam this visit. We discussed conservative management with restarting PT exercises that she used to do in the past for plantar fasciitis. We also discussed importance of wearing supportive footwear and considering podiatry referral for custom insoles if exercises are not effective in relieving her pain. Code(s): M79.672 - Pain in left foot Category: Medical Plan: Resume exercises for plantar fasciitis Orders: Orders Aspartate Amino Transferase Today M45.8 - Ankylosing spondylitis sacral and sacrococcygeal region, Z79.899 - Other computer terminal operator (current) drug therapy Creatinine Today M45.8 - Ankylosing spondylitis sacral and sacrococcygeal region, Z79.899 - Other computer terminal operator (current) drug therapy C Reactive Protein Today M45.8 - Ankylosing spondylitis sacral and sacrococcygeal region, Z79.899 - Other computer terminal operator (current) drug therapy Erythrocyte Sedimentation Rate Today M45.8 - Ankylosing spondylitis sacral and sacrococcygeal region, Z79.899 - Other care home (current) drug therapy Complete Blood Count Man Dif Today M45.8 - Ankylosing spondylitis sacral and sacrococcygeal region, Z79.899 - Other computer terminal operator (current) drug therapy Alanine Aminotransferase Today M45.8 - Ankylosing spondylitis sacral and sacrococcygeal region, Z79.899 - Other care home (current) drug therapy Coding Level of Care Code Est Pt Level 4 (92311) Complex EM visit Add On G2211 Diagnoses Ankylosing spondylitis of sacral region M45.8 Ankylosing spondylitis location: sacral region Other computer terminal operator (current) drug therapy Z79.899 Left foot pain M79.672 Time Spent (min) 30
[2024-10-23 13:18] VITALS: BP 120/80; PULSE 100; O2SAT 98; BMI 27.9
== END 2024-10-23 14:04 | disposition home or self-care (01) ==
LOC: HO.RHES 13:16
PROVIDERS: PCP Physician Assistant; Visit Provider Internal Medicine Rheumatology
DX: M45.8 Ankylosing spondylitis sacral and sacrococcygeal region (principal); Z79.899 Other long term (current) drug therapy; M79.672 Pain in left foot
CPT/HCPCS: 99214; G2211

== ENCOUNTER 2025-04-11 14:21 | Outpatient (AMB) | payer OTHER, SELFPAY ==
--- NOTE | 2025-04-11 14:25 | A.OFFVIS_ITS ---
Vital Signs 04/11/25 14:26 Height 5 ft 8.5 in Weight 197 lb 1.492 oz BMI 29.5 BP 126/100 H Blood Pressure Location Rt brachial Position Sitting Pulse 89 Pulse Source Pulse Oximeter Pulse Oximetry (%) 98 Oxygen Delivery Method Room Air Intake Visit Reasons: 3 months Intake Note: Patient presents today for spondylitis follow up. Accompanied by: Self / Same As Patient Allergies bacitracin (From Polysporin(bacitracin base)) Allergy (Mild, Verified 10/23/24 13:22) Rash polymyxin B (From Polysporin(bacitracin base)) Allergy (Mild, Verified 10/23/24 13:22) Rash HPI HPI 3 months: Details: UC flared 12/2024 confirmed on colonscopy. GI increased frequency of Amjevita 01/2025 to weekly. SI joint pain and stiffness occurs with cold weather, which is usual for her and tolerable. She held Amjevita twice due to infection with exposure being her three-month old daughter who is in daycare. She wakes up with right 5th toe pain. During the day with increased activity and improves with time. This has become more consistent in the last month. In the past when she was given prednisone for respiratory condition, she did not feel well. She is able to run 3 times a week. She starting to get back into her exercise routine. [facility] Medical History Celiac disease Endometriosis Ulcerative colitis delivery delivered Ankylosing spondylitis Family History Mother Juvenile rheumatoid arthritis Rheumatoid arthritis Social History Alcohol intake: never Patient Tobacco Use Status: Never used Tobacco Physical Exam Vital Signs: Last Vital Signs Pulse 89 04/11/25 14:26 BP 126/100 H 04/11/25 14: Pulse Ox 98 04/11/25 14: Oxygen Delivery Method Room Air 04/11/25 14:26 BMI result Body Mass Index 29.5 Const Other: General: Comfortable CVS: RRR Respiratory: clear to auscultation bilaterally. Good respiratory effort Skin: No lesions seen MSK: Synovitis right 5th MTP. Normal range of motion of upper extremities and lower extremities. Bilateral SI joint tenderness. Negative WARREN. Normal range of motion of cervical spine and lumbar flexion. No MTP tenderness Assessment & Plan Assessment & Plan (1) Ankylosing spondylitis: Comment: She has developed synovitis of right 5th MTP on Humira bio similar Amjevita. GI is prescribing Amjevita weekly, which has controlled ulcerative colitis. She agreed with short course of prednisone starting at a low dose. 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 MRI pelvis 03/2022 revealed mild left sacroiliitis. She has ulcerative colitis diagnosed August 2021. Humira started April 2022 to present. She had history of trigger fingers of her left hand that resolved while on Humira. Recurrence of left hand trigger finger involving 4th or 5th finger 2024. Code(s): M45.9 - Ankylosing spondylitis of unspecified sites in spine Category: Medical Qualifiers: Ankylosing spondylitis location: sacral region Qualified Code(s): M45.8 - Ankylosing spondylitis sacral and sacrococcygeal region Plan: Continue Humira bio similar Amjevita 40 mg subcutaneous injection weekly per GI Short course of prednisone prescribed X-ray of bilateral feet ordered Return to clinic in 3 months (2) Other keno terminal operator (current) drug therapy: Code(s): Z79.899 - Other keno terminal operator (current) drug therapy Category: Medical Plan: See above Orders: Orders XR Foot Eliseo 3V 04/11/25 M45.8 - Ankylosing spondylitis sacral and sacrococcygeal region, M79.671 - Pain in right foot Medications: New prednisone Take 2 tablet daily 5 days then 1 tablet daily 5 days then stop 5 mg PO DIRECTED 15 tabs 0RF Coding Level of Care Code Est Pt Level 4 (15632) Complex visit Add On G2211 Diagnoses Ankylosing spondylitis of sacral region M45.8 Ankylosing spondylitis location: sacral region Other keno terminal operator (current) drug therapy Z79.899
[2025-04-11 14:26] VITALS: BP 126/100; PULSE 89; O2SAT 98; BMI 29.5
== END 2025-04-11 15:01 | disposition home or self-care (01) ==
LOC: HO.RHES 14:22
PROVIDERS: PCP Physician Assistant; Visit Provider Internal Medicine Rheumatology
DX: M45.8 Ankylosing spondylitis sacral and sacrococcygeal region (principal); Z79.899 Other long term (current) drug therapy
CPT/HCPCS: 99214; G2211